=== PATIENT | male | born 1985 | race Caucasian/White ===

== ENCOUNTER 2023-05-01 16:55 | Emergency (ER) | payer BC, SELFPAY ==
[2023-05-01 17:15] VITALS: BP 129/82; PULSE 72; RESP 18; TEMP 36.8; O2SAT 100; BMI 25.2
--- NOTE | 2023-05-01 17:33 | XR_ITS ---
PROCEDURE INFORMATION: Exam: XR Right Hip Exam date and time: 05/01/2023 5:31 PM Age: 38 years old Clinical indication: Hip pain; Right hip; Additional info: Pain, no known injury TECHNIQUE: Imaging protocol: Radiologic exam of the right hip. Views: 2 or 3 views hip with pelvis when performed. COMPARISON: No relevant prior studies available. FINDINGS: Bones/joints: There is mild right hip osteoarthritis with joint space narrowing, productive changes, and subchondral sclerosis. Soft tissues: Unremarkable. Vasculature: Multiple pelvic phleboliths are present. IMPRESSION: Mild degenerative disease of the right hip without acute findings
--- NOTE | 2023-05-01 17:42 | EXP.UTC ---
Discharge Plan Disposition Patient Disposition: Home, Self-Care Condition: Good Prescriptions Prescriptions: New methylprednisolone [Medrol (Thiago)] 4 mg tablets,dose pack See Rx Instructions .Route .COMPLEX 6 Days Qty: 21 0RF Rx Instructions: taper pack; Referrals Follow up/Referrals: Ghulam Chau MBBS [Primary Care Provider] - See instructions Activity Restrictions/Add. Instructions Additional Instructions/Restrictions: Follow up with your Family Doctor if no improvement or any worsening of symptoms Start oral steriod pack tomorrow Return if needed Straight to ER if any life threatening symptoms Clinical Impressions Clinical Impression: Hip pain Qualifiers: Laterality: right Qualified Code(s): M25.551 - Pain in right hip Instructions Patient Instructions: DI for Hip Bursitis, DI for Hip Pain Discharge ED Provider: Leigha Weiner [facility] General Stated complaint: RT hip pain Mode of Arrival: Ambulatory Source of Information: Patient Limitations: No Limitations Time Seen by Provider: 05/01/23 17:30 Description of Symptoms (Recalled from Triage Doc. by RN): PATIENT C/O RIGHT HIP PAIN THAT STARTED 2 DAYS AGO. HE STATES HIP IS PAINFUL TO TOUCH AND HAS A SHARP PAIN WITH MOVEMENT AND WEIGHT BEARING. NO KNOWN INJURY HEENT Symptoms (Recalled from RN notes): No Resp Symptoms (Recalled from RN notes): No Skin Symptoms (Recalled from RN notes): No MS Symptoms (Recalled from RN notes): Yes Functional Status (Recalled from RN notes): WNL History of Present Illness Provider Complaint: Patient states that he has been working out some but not really done any leg exercises in about a week States that 2 days ago he started noticing his right hip felt tight when he would bend down State that then he started having some pain that was worse with movement or raising his leg States that it has continued to hurt denies known injury States that it feels like it did when he had bursitis in his shoulder Related Data Previous Rx's Medication Instructions Recorded methylprednisolone 4 mg tablets in See Rx Instructions .Route 05/01/23 a dose pack (Medrol (Thiago)) .COMPLEX 6 days #21 tabs Allergies Allergy/AdvReac Type Severity Reaction Status Date / Time guaifenesin [From Quibron] Allergy Verified 05/01/23 17:32 theophylline [From Quibron] Allergy Verified 05/01/23 17:32 Worker's Comp Is this a Worker's Comp case?: No [facility] Disclaimer: The information contained in this section may have been updated after the patient was seen, as this information can be updated by other users. Social History (Updated 05/01/23 @ 18:27 by Leigha Weiner APRN) Smoking Status: Unknown if ever smoked alcohol intake: never current occupational status: employed Travel in the last 8 weeks: None ROS Obtained: Yes All systems reviewed & no additional complaints except as documented and Yes Systems reviewed as appropriate & no additional complaints except as documented Constitutional Constitutional: Reports system reviewed and no additional complaints, except as documented, Reports as per HPI and Denies fever(s) ENT Ears, Nose, Mouth, and Throat: Reports system reviewed and no additional complaints, except as documented and Reports as per HPI Cardiovascular Cardiovascular: Reports system reviewed and no additional complaints, except as documented and Reports as per HPI Respiratory Respiratory: Reports system reviewed and no additional complaints, except as documented and Reports as per HPI Gastrointestinal Gastrointestingal: Reports system reviewed and no additional complaints, except as documented and as per HPI Musculoskeletal Musculoskeletal: Reports system reviewed and no additional complaints, except as documented and Reports as per HPI Comments: Pain in right hip with movement and walking x 2 days denies known injury Physical Exam General General appearance: alert and in no apparent distress Respiratory
[2023-05-01 18:26] VITALS: BP 129/82; PULSE 72; RESP 18; TEMP 36.8; O2SAT 100
== END 2023-05-01 18:45 | disposition home or self-care (01) ==
PROVIDERS: Emergency Provider Nurse Practitioner; PCP Family Medicine Sports Medicine
DX: M25.551 Pain in right hip (principal)
CPT/HCPCS: 73502; 96372; 99204; 99212; G0463

== ENCOUNTER 2023-11-04 18:51 | Emergency (ER) | payer BC, SELFPAY ==
[2023-11-04 19:00] VITALS: BP 124/85; PULSE 68; RESP 18; TEMP 36.8; O2SAT 100; BMI 27.0
[2023-11-04 19:09] VITALS: BP 124/85; PULSE 68; RESP 18; TEMP 36.8; O2SAT 100
--- NOTE | 2023-11-04 19:14 | EXP.UTC ---
Discharge Plan Disposition Patient Disposition: Home, Self-Care Condition: Good Prescriptions Prescriptions: New azithromycin [Zithromax Z-Thiago] 250 mg tablet See Rx Instructions .ROUTE .COMPLEX 5 Days Qty: 6 0RF Rx Instructions: For 250 mg dose pack: take 500 mg today (day 1), then 250 mg for 4 days (days 2-5) No Action lisinopril 5 mg tablet 5 mg PO DAILY Patient Comments: TAKE 1 TABLET BY MOUTH ONCE DAILY Eliquis 5 mg tablet 5 mg PO DAILY Patient Comments: [facility]. Referrals Follow up/Referrals: Ghulam Chau MBBS [Primary Care Provider] - See instructions Activity Restrictions/Add. Instructions Additional Instructions/Restrictions: *Monitor Temp, Over the counter Motrin or Tylenol as directed/as needed Tylenol every 4 hours and Motrin every 6 hours (as long as your family doctor has told you that you can take it) for fever or pain. and straight to ER if unable to lower temp less than 101.0 after medication given *Warm salt water gargles may help to soothe the throat *Throat Lozenges? *Warm fluids like tea with honey may help to soothe the throat? *Sleep elevated *Humidifier/Vaporizer *If you did not take Penicillin shot or was unable to, start taking antibiotic immediately and make sure that you take it for the FULL length of time although you should start to feel better in 24-48 hours *change toothbrush and toothpaste 24-48 hours after starting to take antibiotics so you do not reinfect yourself Monitor Temp. Tylenol and/or Ibuprofen as needed. ER if fever is no less than 101 despite alternating Tylenol and Ibuprofen * Encourage fluids, water, Gatorade, powerade, pedialyte if infant/toddler/or child *Cold fluids, popsicles and ice cream may feel good on his throat Follow up IMMEDIATELY for new or worsening symptoms or no Noticeable improvement over the next 48-72 hours. 911 for difficulty breathing or swallowing Clinical Impressions Clinical Impression: Strep throat Instructions Patient Instructions: Strep Throat, DI for Strep Throat Discharge ED Provider: [place] [facility] [place] General Stated complaint: sore throat, diff swallowing, fever Mode of Arrival: Ambulatory Source of Information: Patient Limitations: No Limitations Time Seen by Provider: 11/04/23 19:14 Description of Symptoms (Recalled from Triage Doc. by RN): PATIENT C/O SORE THROAT WITH DIFFICULTY SWALLOWING AND FEVER X 2 DAYS HEENT Symptoms (Recalled from RN notes): Yes Resp Symptoms (Recalled from RN notes): No Skin Symptoms (Recalled from RN notes): No MS Symptoms (Recalled from RN notes): No Functional Status (Recalled from RN notes): WNL History of Present Illness Provider Complaint: Patient states that for the last couple of days he has been having sore throat and pain with swallowing States he feels like he has a golfball on the right side of his throat States today he was still having pain in his throat so he came in Related Data Home Medications Medication Instructions Recorded Confirmed apixaban 5 mg tablet (Eliquis) 5 mg PO DAILY 11/04/23 11/04/23 lisinopril 5 mg tablet 5 mg PO DAILY 11/04/23 11/04/23 Previous Rx's Medication Instructions Recorded azithromycin 250 mg tablet See Rx Instructions PO .COMPLEX 5 11/04/23 (Zithromax Z-Thiago) days #6 tabs Allergies Allergy/AdvReac Type Severity Reaction Status Date / Time guaifenesin [From Quibron] Allergy Verified 05/01/23 17:32 theophylline [From Quibron] Allergy Verified 05/01/23 17:32 Worker's Comp Is this a Worker's Comp case?: No [facility] Disclaimer: The information contained in this section may have been updated after the patient was seen, as this information can be updated by other users. Medical History (Updated 11/04/23 @ 19:17 by Leigha Weiner APRN) Hypertension Pulmonary embolism Social History (Updated 05/01/23 @ 18:27 by Leigha Weiner APRN) Smoking Status: Unknown if ever smoked alcohol intake: never current occupational status: employed Travel in the last 8 weeks: None ROS Obtained: Yes All systems reviewed & no additional complaints except as documented and Yes Systems reviewed as appropriate & no additional complaints except as documented Constitutional Constitutional: Reports system reviewed and no additional complaints, except as documented and Reports as per HPI ENT Ears, Nose, Mouth, and Throat: Reports system reviewed and no additional complaints, except as documented, Reports as per HPI and Reports sore throat Cardiovascular Cardiovascular: Reports system reviewed and no additional complaints, except as documented and Reports as per HPI Respiratory Respiratory: Reports system reviewed and no additional complaints, except as documented and Reports as per HPI Gastrointestinal Gastrointestingal: Reports system reviewed and no additional complaints, except as documented and as per HPI Physical Exam General General appearance: alert and in no apparent distress ENT ENT exam: Present mucous membranes moist Expanded ENT Exam Throat exam: Present tonsillar erythema and tonsillar exudate Respiratory Respiratory exam: Present normal lung sounds bilaterally; Absent respiratory distress or wheezes Cardiovascular Cardiovascular exam: Present regular rate, normal rhythm and normal heart sounds Abdominal Exam Abdominal exam: Present soft and normal bowel sounds; Absent distention or tenderness Neurological Exam Neurological exam: Present alert, oriented X3 and normal gait Medical Decision Making Marshall Inquiry Pt receiving controlled substance: No Marshall was queried for this patient: No Vital Signs: 11/04/23 19:00 11/04/23 19:09 Temperature 98.2 F 98.2 F Temperature Source Oral Pulse Rate 68 Pulse Rate [Left Brachial] 68 Respiratory Rate 18 18 Blood Pressure 124/85 Blood Pressure [Left Arm] 124/85 Blood Pressure Mean [Left Arm] 98 Blood Pressure Source [Left Arm] Automatic Cuff Blood Pressure Position [Left Arm] Sitting 02 Sat by Pulse Oximetry 100 Oxygen Delivery Method Room Air Lab Data Lab results reviewed: Yes I reviewed the patient's lab results.
[2023-11-04 19:23] LABS: UTC Strep Screen (Rapid) Positive (Negative)
[2023-11-04] MEDS: PENICILLIN G BENZATHINE 1,200,000 UNITS/2ML SYRINGE 1200000 UNIT IM (19:29)
== END 2023-11-04 19:43 | disposition home or self-care (01) ==
PROVIDERS: Emergency Provider Nurse Practitioner; PCP Family Medicine Sports Medicine
DX: J02.0 Streptococcal pharyngitis (principal); R07.0 Pain in throat; I10 Essential (primary) hypertension
CPT/HCPCS: 87880; 96372; 99212; 99214; G0463; J0561